=== PATIENT | female | born 1965 | race Asian ===

== ENCOUNTER 2021-02-22 23:29 | Emergency (ER) | payer OTHER ==
[~2021-02-22] VITALS: Ht 160 cm; Wt 62.0 kg
[2021-02-22] MEDS ORDERED: ONDANSETRON PF 4 MG/2 ML VIAL. IVP ONE (23:45)
[2021-02-22] MEDS ORDERED: IV NORMAL SALINE 1,000ML 1,000 ML IV ONE (23:45)
--- NOTE | 2021-02-22 23:53 | PHYS DOC ---
Adult General Chief Complaint Chief Complaint: Vomiting HPI HPI Patient is a 55 year old female who presents with nausea and vomiting starting approximately 6 PM this evening. Patient states that at work she had lunch with some noodles and then a coffee later on in the day with old milk from the refrigerator. She thinks that after she got home, she started having some abdominal cramps and then started having nausea vomiting. She has some epigastric discomfort but otherwise has no significant abdominal pain. Denies any back pain. Denies any dysuria or diarrhea. Denies cough, fever, chest pain or headache. Until this afternoon, she was completely asymptomatic. She has no further complaints. Review of Systems Review of Systems Constitutional: Denies fever or chills Eyes: Denies change in visual acuity, redness, or eye pain HENT: Denies nasal congestion or sore throat Respiratory: Denies cough or shortness of breath Cardiovascular: No additional information not addressed in HPI GI: As stated in HPI : Denies dysuria or hematuria Musculoskeletal: Denies back pain or joint pain Integument: Denies rash or skin lesions Neurologic: Denies headache, focal weakness or sensory changes Endocrine: Denies polyuria or polydipsia All other systems were reviewed and found to be within normal limits, except as documented in this note. Current Medications Current Medications Current Medications Medications (Trade) Dose Ordered Sig/[facility] Start Time Stop Time Status Last Admin Dose Admin Ondansetron HCl (Zofran) 4 mg 1X ONCE 02/22/21 23:45 02/22/21 23:46 UNV Sodium Chloride 1,000 ml @ 1,000 mls/hr 1X ONCE 02/22/21 23:45 02/23/21 00:44 UNV Physical Exam Physical Exam Constitutional: Well developed, well nourished, no acute distress, non-toxic appearance. HENT: Normocephalic, atraumatic, bilateral external ears normal, oropharynx moist, no oral exudates, nose normal. Eyes: PERRLA, EOMI, conjunctiva normal, no discharge. Neck: Normal range of motion, no tenderness, supple, no stridor. Cardiovascular:Heart rate regular rhythm, no murmur Lungs & Thorax: Bilateral breath sounds clear to auscultation Abdomen: Bowel sounds normal, soft, only minimal epigastric tenderness but none in other 4 quadrants, no masses, no pulsatile masses. Skin: Warm, dry, no erythema, no rash. Back: No tenderness, no CVA tenderness. Extremities: No tenderness, no cyanosis, no clubbing, ROM intact, no edema. Neurologic: Alert and oriented X 3, normal motor function, normal sensory function, no focal deficits noted. Psychologic: Affect normal, judgement normal, mood normal. Current Patient Data Vital Signs No significant abnormalities Lab Results Laboratory Tests Test 02/23/21 00:06 02/23/21 00:53 02/23/21 01:11 White Blood Count 4.6 x10^3/uL Red Blood Count 4.42 x10^6/uL Hemoglobin 12.8 g/dL Hematocrit 39.2 % Mean Corpuscular Volume 89 fL Mean Corpuscular Hemoglobin 29 pg Mean Corpuscular Hemoglobin Concent 33 g/dL Red Cell Distribution Width 13.6 % Platelet Count 166 x10^3/uL Neutrophils (%) (Auto) 77 % Lymphocytes (%) (Auto) 17 % Monocytes (%) (Auto) 6 % Eosinophils (%) (Auto) 0 % Basophils (%) (Auto) 0 % Neutrophils # (Auto) 3.5 x10^3uL Lymphocytes # (Auto) 0.8 x10^3/uL Monocytes # (Auto) 0.3 x10^3/uL Eosinophils # (Auto) 0.0 x10^3/uL Basophils # (Auto) 0.0 x10^3/uL Sodium Level 140 mmol/L Potassium Level 3.7 mmol/L Chloride Level 101 mmol/L Carbon Dioxide Level 29 mmol/L Anion Gap 10 Blood Urea Nitrogen 10 mg/dL Creatinine 0.4 mg/dL Estimated GFR (Cockcroft-Gault) 166.3 BUN/Creatinine Ratio 25 Glucose Level 146 mg/dL Calcium Level 9.3 mg/dL Total Bilirubin 0.5 mg/dL Aspartate Amino Transf (AST/SGOT) 18 U/L Alanine Aminotransferase (ALT/SGPT) 34 U/L Alkaline Phosphatase 80 U/L Total Protein 7.1 g/dL Albumin 4.0 g/dL Albumin/Globulin Ratio 1.3 Urine Collection Type Unknown Urine Color Yellow Urine Clarity Hazy Urine pH 8.5 Urine Specific [place] 1.020 Urine Protein Neg Urine Glucose (UA) Neg mg/dL Urine Ketones (Stick) Neg mg/dL Urine Blood Neg Urine Nitrite Neg Urine Bilirubin Neg Urine Urobilinogen Dipstick 0.2 mg/dL Urine Leukocyte Esterase Neg Urine RBC 0 /HPF Urine WBC Occ /HPF Urine Squamous Epithelial Cells Occ /LPF Urine Amorphous Sediment Present /HPF Urine Bacteria 0 /HPF Bedside Urine HCG, Qualitative hcg negative Current Medications Medications (Trade) Dose Ordered Sig/[facility] Route PRN Reason Start Time Stop Time Status Last Admin Dose Admin Sodium Chloride 1,000 ml @ 1,000 mls/hr 1X ONCE IV 02/22/21 23:45 02/23/21 00:44 DC 02/23/21 00:16 Ondansetron HCl (Zofran) 4 mg 1X ONCE IVP 02/22/21 23:45 02/22/21 23:58 DC 02/23/21 00:16 EKG EKG [] Radiology/Procedures Radiology/Procedures [] Heart Score C/O Chest Pain: No Risk Factors: Risk Factors: DM, Current or recent (<one month) smoker, HTN, HLP, family history of CAD, obesity. Risk Scores: Risk Factors: DM, Current or recent (<one month) smoker, HTN, HLP, family history of CAD, obesity. Course & Med Decision Making Course & Med Decision Making Pertinent Labs and Imaging studies reviewed. (See chart for details) Patient had presented with vomiting otherwise was feeling well prior in the day. She had an IV established and normal saline 1 L bolus started along with Zofran. Her laboratory studies were all unremarkable including CBC, comprehensive metabolic profile and urinalysis. After liter of hydration and Zofran, patient felt significantly better and is able to tolerate diet. She request discharge home. Is likely that she could have food poisoning or just gastritis. I have instructed her to take bland diet for the next 24 hours and keep yourself hydrated. She will follow up with her physician if she has any recurrent symptoms or come back to the emergency department. Dragon Disclaimer Dragon Disclaimer This electronic medical record was generated, in whole or in part, using a voice recognition dictation system. Departure Departure: Impression: Primary Impression: Gastritis Ruled Out: Vomiting Disposition: HOME / SELF CARE / HOMELESS Condition: IMPROVED Referrals: NE GLEASON MD (PCP) Please see your doctor in 1 to 2 days and if you have recurrent symptoms or not tolerating diet, please come back to emergency department. Patient Instructions: Gastritis, Adult Problem Qualifiers Primary Impression: Gastritis Gastritis type: unspecified gastritis Chronicity: acute Gastritis bleeding: without bleeding Qualified Codes: K29.00 - Acute gastritis without bleeding ADIN BURTON MD Feb 22, 2021 23:53
[2021-02-23 00:39] LABS: BASO % 0 % (0-3); EOS % 0 % (0-3); HEMATOCRIT 39.2 % (36.0-47.0); HEMOGLOBIN 12.8 g/dL (12.0-15.5); LYMPH # 0.8 x10^3/uL (1.0-4.8); LYMPH % 17 % (24-48); MEAN CORPUSCULAR HEMOGLOBIN 29 pg (25-35); MEAN CORPUSCULAR HGB CONC 33 g/dL (31-37); MEAN CORPUSCULAR VOLUME 89 fL (79-100); MONO # 0.3 x10^3/uL (0.0-1.1); MONO % 6 % (0-9); NEUT # 3.5 x10^3uL (1.8-7.7); NEUT % 77 % (31-73); PLATELET COUNT 166 x10^3/uL (140-400); RED BLOOD COUNT 4.42 x10^6/uL (3.50-5.40); RED CELL DISTRIBUTION WIDTH 13.6 % (11.5-14.5); WHITE BLOOD COUNT 4.6 x10^3/uL (4.0-11.0)
[2021-02-23 00:47] LABS: CALCIUM 9.3 mg/dL (8.5-10.1); CREATININE 0.4 mg/dL (0.6-1.0); GFR 166.3; POTASSIUM 3.7 mmol/L (3.5-5.1)
[2021-02-23 00:53] LABS: ALBUMIN/GLOBULIN RATIO 1.3 (1.0-1.7); TOTAL BILIRUBIN 0.5 mg/dL (0.2-1.0); TOTAL PROTEIN 7.1 g/dL (6.4-8.2)
[2021-02-23 01:38] LABS: BACTERIA,URINE 0 /HPF (0-FEW); BILIRUBIN,URINE NEG (NEG); CLARITY,URINE HAZY; COLOR,URINE YELLOW; GLUCOSE,URINE NEG (NEG); NITRITE,URINE NEG (NEG); RBC,URINE 0 /HPF (0-2); SQUAMOUS EPITHELIAL CELL,UR OCC /LPF; UROBILINOGEN,URINE 0.2 mg/dL (0.2 mg/dL); WBC,URINE OCC /HPF (0-4)
[2021-02-23 01:39] LABS: AMORPHOUS SEDIMENT,UR PRESENT /HPF
[2021-02-23 01:53] VITALS: BP 133/77
== END 2021-02-23 02:08 | disposition home or self-care (01) ==
LOC: ER 23:29
DX: K29.00 Acute gastritis without bleeding (principal)
CPT/HCPCS: 36415; 80053; 81001; 81025; 85025; 96361; 96374; 99283; J2405; J7030